=== PATIENT | female | born 1965 | race Caucasian/White ===

== ENCOUNTER → 2020-12-04 | Outpatient (CLI) | payer OTHER ==
--- NOTE | 2020-12-04 12:39 | KCIC ---
Bilateral digital screening mammograms: Reason for examination: Routine baseline screening. Interpretation was made with the benefit of CAD. The skin and nipples show no abnormalities. No abnormal axillary lymph nodes are seen. The breast par enchyma shows scattered fibroglandular density. (Breast density: Category B.) There is a 1.8 cm circu mscribed ovoid nodule at the 9:00 B position of the right breast 6 cm from the nipple. This probably represents a cyst or fibroadenoma. Further evaluation with ultrasound is recommended. There are no ot her masses, suspicious calcifications or architectural distortions. Impression: 1.8 cm nodule at the 9:00 position of the right breast 6 cm from the nipple. Recommend further evalua tion with ultrasound. BI-RADS Category 0: Incomplete. Needs additional imaging evaluation. "Our facility is accredited by the [employer] Mammography [employer]." This patient's information has been entered into a reminder system for the patient to be notified wit h the results of her examination and a target date for the next mammogram. Electronically signed by: Heather Blanchard MD (12/04/2020 12:37 PM) [email or web address]
== END ==
LOC: KCIC MAMMO 09:18
PROVIDERS: ATTEND Obstetrics & Gynecology
DX: Z01.419 Encounter for gynecological examination (general) (routine) without abnormal findings (principal); N63.41 Unspecified lump in right breast, subareolar
CPT/HCPCS: 77067

== ENCOUNTER → 2020-12-13 | Outpatient (CLI) | payer OTHER ==
--- NOTE | 2020-12-13 14:04 | KCIC ---
Exam: Right breast ultrasound. Indication: Reason: CALLBACK RT BREAST / Spl. Instructions: / History: . Comparison: Mammogram from 12/04/2020 Findings: Right breast ultrasound at the 9:00 position, 4.5 cm deep to the nipple reveals a parallel oriented o void hypoechoic mass with areas of indistinct margins. This mass measures 1.2 x 1.5 x 0.5 cm. There i s no associated vascularity with normal through transmission of sound. Visualized right axillary lymp h nodes are unremarkable. Impression: Suspicious right breast mass.This may represent a atypical fibroadenoma, however the rizwana stinct margins are suspicious and warrant further evaluation with tissue sampling. BI-RADS 4. Suspicious. This would be amenable to ultrasound-guided biopsy. Electronically signed by: Oni Poe DO (12/13/2020 2:02 PM) [email or web address]
== END ==
LOC: KCIC US 13:16
PROVIDERS: ATTEND Obstetrics & Gynecology
DX: N63.11 Unspecified lump in the right breast, upper outer quadrant (principal)
CPT/HCPCS: 76641